=== PATIENT | female | born 1965 | race Two or more races ===

== ENCOUNTER 2017-03-12 15:08 | Emergency (ER) | payer OTHER, MEDICAID ==
[2017-03-12 15:20] VITALS: BMI 40.8
[2017-03-12] MEDS ORDERED: ZESTRIL TAB 40 MG ONE (15:54)
[2017-03-12] MEDS ORDERED: ZESTRIL TAB 40 MG PO SCH (15:58)
--- NOTE | 2017-03-12 16:32 | DR.HTN ---
HPI - Time Seen Time seen: 16:30 - Primary Care Physician Primary Care Physician: SAV MATUTE - HPI Comment HPI Comment: PATIENT COMPLIANT WITH MEDICATION. SHE IS ALSO HAVING ABDMINAL PAIN WITH NAUSEA. CHEST IS ALSO HURTING. NO FEVER. - Complaints Chief Complaint Doctors Comments: ELEVATED BP, CHEST PAIN AND DIZZINESS FOR SEVERAL DAYS. EVALUATED IN [place] FOR SAME. BP STILL ELEVATED. Chief Complaint:: PT C/O BP BEING HIGH AND THAT SHE HAS BEEN IN THE ER IN [place] 3 TIMES PT HAS A RX FOR CATAPRESS AND PT C/O THAT HE BP IS STILL HIGH.. Self Treatment fo Chief Complaint: PT C/O SOME PAIN IN HER CHEST, AND DIZZY WHEN SHE WALKS. - Reviewed Nurses Notes Reviewed: Yes - Source History Provided: Patient - Mode of Arrival Mode of Arrival: Ambulatory - Timing Onset of Chief Complaint: 02/25/17 - Severity What was the maximum recorded B/P?: 252/202 Severity: Moderate - Context Circumstances: Spontaneous Onset Treatment of HTN Prior to Arrival: Taking meds as prescribed - Associated Signs and Symptoms HTN Associated Signs and Symptoms: Headache, Dizziness PMH - PMH Past Medical History: Yes Past Medical History: Hypertension Past Surgical History: Yes Surgical History: Cholecystectomy Past Surgical History Comment: FREDY AREVALO , HERNIA - Family History History of Family Medical Conditions: No - Social History Does patient currently use any type of tobacco product: Yes Have you used tobacco products in the last 12 months: Yes Type of Tobacco Use: None How many years tobacco product used: 34 Does any household member use tobacco: No Alcohol Use: None Do you use any recreational Drugs:: No Lives With: Family Lives Where: Home - infectious screening In the last 2 months have you had wt loss of >10#?: NO Have you had fever, night sweats or hemotysis?: No Have you traveled outside the country in the last 6 months?: No Isolation: Standard ROS - Review of Systems Constitutional: Weakness, Fatigue. negative: Chills, Fever Eyes: No Symptoms Reported. negative: Eye Pain, Discharge ENTM: No Symptoms Reported. negative: Ear Pain, Nose Discharge, Nose Congestion , Throat Pain Respiratoy: No Symptoms Reported, Short of Breath. negative: Productive Cough, Non-Productive Cough, Wheezing, Hemoptysis Cardiovascular: No Symptoms Reported, Chest Pain. negative: Edema, Palpitations Gastrointestinal/Abdominal: No Symptoms Reported, Abdominal Pain, Nausea Genitourinary: No Symptoms Reported. negative: Dysuria, Frequency, Hematuria Neurological: Headache, Dizziness Musculoskeletal: No Symptoms Reported Integumentary: No Symptoms Reported Hematologic/Lymphatic: No Symptoms Reported Endocrine: No Symptoms Reported All Other Systems: Reviewed and Negative PE - Vital Signs Vitals: Temperature 98.0 F Pulse Rate 74 Respiratory Rate 18 Blood Pressure [Left Arm] 150/70 Blood Pressure 188/90 O2 Sat by Pulse Oximetry 98 - General Limitations: No Limitations General Appearance: Alert - Head Head Exam: Normal Inspection - Eyes Eye exam: Normal Appearance Pupils: Regular, Round: Bilateral - ENT ENT Exam: Normal External Ear Exam - Neck Neck Exam: Trachea Midline - Chest Chest Inspection: Symmetric Chest Wall Rise - Respiratory Respiratory Exam: Normal Lung Sounds Bilat Respiratory Exam: Bilateral Clear to Auscultation - Cardiovascular Cardiovascular Exam: Regular Rate, Normal Rhythm, Normal Heart Sounds - Abdominal Exam Abdominal Exam: Normal Bowel Sounds, Soft. negative: Tenderness - Extremities Extremities Exam: Normal Inspection - Back Back Exam: Normal Inspection - Neurologic Neurological Exam: Alert, Oriented X3 Speech: Fluid Speech Cranial Nerve Exam: EOM Function (II, III, IV, ): Normal, Facial Sensation (V) : Normal, Facial Palsy (VII): Normal, Gag reflex (XI): Normal, Spinal Accessory Function (XI): Normal, Tongue Deviation: Normal Motor Strength - LUE: 5/5 Motor Strength - RUE: 5/5 Motor Strength - LLE: 5/5 Motor Strength - RLE: 5/5 Upper Motor Neuron Exam: Babinski Sign: Normal DTR: bicep (L): 4+, bicep (R): 4+, brachioradialis (L): 4+, brachioradialis (R) : 4+, Patellar (L): 4+, patellar (R): 4+ - Psychiatric Psychiatric Exam: Normal Affect, Normal Mood - Skin Skin Exam: Normal Color MDM - Differential Diagnosis Differential Diagnosis: Hyertension, essential Differential Diagnosis Comment: ABDOMINAL PAIN, CHEST PAIN Course - Treatment Treatment: SEE ORDERS. - Education/Counseling Education/Counseling: Patient, Education Educated On: Treatment, Diagnosis, Needs for Follow Up ROR - Labs Reviewed Laboratory Results Reviewed?: Yes Result Diagrams: 03/12/17 16:40 03/12/17 16:40 Laboratory: WBC 13.7 X10^3/uL (3.6-10.0) H 03/12/17 16:40 RBC 4.28 X10^6/uL (3.5-5.4) 03/12/17 16:40 Hgb 12.4 g/dL (12.0-16.0) 03/12/17 16:40 Hct 37.4 % (36.0-47.0) 03/12/17 16:40 MCV 87.4 fL (80.0-100.0) 03/12/17 16:40 MCH 28.9 pg (27.0-34.0) 03/12/17 16:40 MCHC 33.0 g/dL (33.0-35.0) 03/12/17 16:40 RDW 14.7 % (11.6-16.5) 03/12/17 16:40 Plt Count 374 X10^3/uL (150.0-450.0) 03/12/17 16:40 MPV 7.5 fL (7.4-11.0) 03/12/17 16:40 Neut % 75.5 % (42.0-75.0) H 03/12/17 16:40 Lymph % 15.9 % (21.0-51.0) L 03/12/17 16:40 [place] % 6.3 % (0.0-13.0) 03/12/17 16:40 Eos % 1.2 % (0.9-2.9) 03/12/17 16:40 Baso % 1.1 % (0.2-1.0) H 03/12/17 16:40 Neut # 10.3 x10^3/uL (2.2-4.8) H 03/12/17 16:40 Lymph # 2.2 X10^3/uL (1.3-2.9) 03/12/17 16:40 [place] # 0.9 x10^3/uL (0.3-0.8) H 03/12/17 16:40 Eos # 0.2 x10^3/uL (0.0-0.2) 03/12/17 16:40 Baso # 0.1 X10^3/uL (0.0-0.1) 03/12/17 16:40 Absolute Nucleated RBC 0.0 /100WBC 03/12/17 16:40 Sodium 137 mmol/L (136-145) 03/12/17 16:40 Corrected Sodium TNP 03/12/17 16:40 Potassium 4.7 mmol/L (3.5-5.1) 03/12/17 16:40 Chloride 105 mmol/L (98-107) 03/12/17 16:40 Carbon Dioxide 22.7 mmol/L (21-32) 03/12/17 16:40 BUN 30 mg/dL (7-18) H 03/12/17 16:40 Creatinine 2.61 mg/dL (0.55-1.02) H 03/12/17 16:40 Est GFR (MDRD) Af Amer 25 (>60) L 03/12/17 16:40 Est GFR (MDRD) Non-Af 21 (>60) L 03/12/17 16:40 Glucose 96 mg/dL (65-99) 03/12/17 16:40 Calcium 9.0 mg/dL (8.5-10.1) 03/12/17 16:40 Corrected Calcium 10.2 mg/dL (8.5-10.1) H 03/12/17 16:40 Total Bilirubin 0.20 mg/dL (0.2-1.0) 03/12/17 16:40 AST 16 Units/L (15-37) 03/12/17 16:40 ALT 17 Units/L (12-78) 03/12/17 16:40 Alkaline Phosphatase 104 Units/L (46-116) 03/12/17 16:40 Creatine Kinase 43 Units/L (26-192) 03/12/17 16:40 CK-MB (CK-2) 1.0 ng/mL (0-4.0) 03/12/17 16:40 CK/CKMB % Calc 2.3 % (<4) 03/12/17 16:40 Troponin I < 0.02 ng/mL (0-1.5) 03/12/17 16:40 Total Protein 7.7 g/dL (6.4-8.2) 03/12/17 16:40 Albumin 2.5 g/dL (3.4-5.0) L 03/12/17 16:40 Globulin 5.2 g/dL (2.5-4.5) H 03/12/17 16:40 Albumin/Globulin Ratio 0.5 Ratio (1.1-2.1) L 03/12/17 16:40 Amylase 84 Units/L (25-115) 03/12/17 16:40 Lipase 149 Units/L (73-393) 03/12/17 16:40 Specimen Type Clean catch urine 03/12/17 16:58 Urine Color Yellow (YELLOW) 03/12/17 16:58 Urine Appearance Hazy (CLEAR) 03/12/17 16:58 Urine pH 5.0 (5.0 - 8.0) 03/12/17 16:58 Ur Specific [place] 1.015 (1.000-1.030) 03/12/17 16:58 Urine Protein 4+ (NEGATIVE) 03/12/17 16:58 Urine Glucose (UA) Negative (NEGATIVE) 03/12/17 16:58 Urine Ketones Negative (NEGATIVE) 03/12/17 16:58 Urine Occult Blood 4+ (NEGATIVE) 03/12/17 16:58 Urine Nitrite Negative (NEGATIVE) 03/12/17 16:58 Urine Bilirubin Negative (NEGATIVE) 03/12/17 16:58 Urine Urobilinogen Normal (NORMAL) 03/12/17 16:58 Ur Leukocyte Esterase Negative (NEGATIVE) 03/12/17 16:58 Urine RBC 0-5 /HPF (NEGATIVE) 03/12/17 16:58 Urine WBC 3-5 /HPF (NEGATIVE) 03/12/17 16:58 Ur Squamous Epith Cells Few /HPF (NEGATIVE) 03/12/17 16:58 Urine Bacteria Trace /HPF (NEGATIVE) 03/12/17 16:58 Ur Culture Indicated? No/not indicated 03/12/17 16:58 - Diagnosis Discharge Problem: Chest pain Abdominal pain Qualifiers: Abdominal location: generalized Qualified Code(s): R10.84 - Generalized abdominal pain Hypertension Qualifiers: Hypertension type: essential hypertension Qualified Code(s): I10 - Essential ( primary) hypertension - Discharge Plan Disposition: HOME, SELF-CARE Condition: Stable - Follow ups/Referrals Follow ups/Referrals: NOY ANG [Primary Care Provider] - 3 days - Instructions Instructions: Abdominal Pain, Adult, [id number], Hypertension, [id number], Chest Pain Observation Additional Instructions: RETURN TO ED IF WORSE. CONTINUE WITH LISINOPRIL YOU HAVE AT HOME. ALSO CLONIDINE YOU HAVE BID IF SBP OVER 150.
[2017-03-12] MEDS: CATAPRES TAB 0.2 MG PO ONE ×2 (16:35→16:40)
[2017-03-12 17:06] LABS: BILIRUBIN,URINE NEGATIVE (NEGATIVE); BLOOD/HEMOGLOBIN,URINE 4+ (NEGATIVE); GLUCOSE, URINE NEGATIVE (NEGATIVE); KETONES,URINE NEGATIVE (NEGATIVE); LEUKOCYTE ESTERASE ,URINE NEGATIVE (NEGATIVE); NITRITES,URINE NEGATIVE (NEGATIVE); PROTEIN,URINE 4+ (NEGATIVE); UROBILINOGEN,URINE NORMAL (NORMAL)
--- NOTE | 2017-03-12 17:07 | RAD ---
ACUTE ABDOMINAL SERIES CLINICAL HISTORY: 51-year-old female with chest pain and dizziness. COMPARISON: None. FINDINGS: PA chest radiograph demonstrates normal cardiopericardial silhouette. There is no focal consolidation , pleural effusion or pneumothorax. Pulmonary vascularity is normal. Abdominal radiographs demonstrate a nonobstructive bowel gas pattern. Gas and stool are seen througho ut the colon. There is no small bowel distention. There is no radiographic evidence of pneumoperitone um. Imaged osseous structures are intact. Soft tissues are unremarkable. IMPRESSION: 1. No acute cardiopulmonary process. 2. Nonobstructive bowel gas pattern without radiographic evidence of pneumoperitoneum. Reported By:
[2017-03-12 17:10] LABS: BASOPHILS # (AUTO) 0.1 X10^3/uL (0.0-0.1); BASOPHILS % (AUTO) 1.1 % (0.2-1.0); EOSINOPHILS # (AUTO) 0.2 x10^3/uL (0.0-0.2); EOSINOPHILS % (AUTO) 1.2 % (0.9-2.9); HEMATOCRIT 37.4 % (36.0-47.0); HEMOGLOBIN 12.4 g/dL (12.0-16.0); LYMPHOCYTES # (AUTO) 2.2 X10^3/uL (1.3-2.9); LYMPHOCYTES % (AUTO) 15.9 % (21.0-51.0); MEAN CORPUSCULAR HEMOGLOBIN 28.9 pg (27.0-34.0); MEAN CORPUSCULAR VOLUME 87.4 fL (80.0-100.0); MEAN PLATELET VOLUME 7.5 fL (7.4-11.0); MONOCYTES # (AUTO) 0.9 x10^3/uL (0.3-0.8); MONOCYTES % (AUTO) 6.3 % (0.0-13.0); NEUTROPHILS # (AUTO) 10.3 x10^3/uL (2.2-4.8); NEUTROPHILS % (AUTO) 75.5 % (42.0-75.0); PLATELET COUNT 374 X10^3/uL (150.0-450.0); RED BLOOD COUNT 4.28 X10^6/uL (3.5-5.4); RED CELL DISTRIBUTION WIDTH 14.7 % (11.6-16.5); WHITE BLOOD COUNT 13.7 X10^3/uL (3.6-10.0)
[2017-03-12 17:11] LABS: APPEARANCE,URINE HAZY (CLEAR); BACTERIA,URINE TRACE /HPF (NEGATIVE); COLOR,URINE YELLOW (YELLOW); RBC,URINE 0-5 /HPF (NEGATIVE); SQUAMOUS EPITHELIAL CELL,UR FEW /HPF (NEGATIVE)
[2017-03-12 17:28] LABS: BLOOD UREA NITROGEN 30 mg/dL (7-18); CARBON DIOXIDE 22.7 mmol/L (21-32); CHLORIDE 105 mmol/L (98-107); CREATININE 2.61 mg/dL (0.55-1.02); SODIUM 137 mmol/L (136-145); TROPONIN I < 0.02 ng/mL (0-1.5); eGFR BLACK RACES 25 (>60); eGFR NON BLACK RACES 21 (>60)
[2017-03-12 17:32] LABS: ALANINE AMINOTRANSFERASE 17 Units/L (12-78); ALBUMIN 2.5 g/dL (3.4-5.0); ALKALINE PHOSPHATASE 104 Units/L (46-116); AMYLASE 84 Units/L (25-115); ASPARTATE AMINO TRANSFERASE 16 Units/L (15-37); CKMB % 2.3 % (<4); COR CA(FOR HYPOALB) 10.2 mg/dL (8.5-10.1); CREATINE KINASE 43 Units/L (26-192); LIPASE 149 Units/L (73-393); TOTAL PROTEIN 7.7 g/dL (6.4-8.2)
[2017-03-12 17:38] VITALS: BP 150/70
== END 2017-03-12 18:35 | disposition home or self-care (01) ==
LOC: ER 15:32
DX: R07.89 Other chest pain (principal); R10.84 Generalized abdominal pain; I10 Essential (primary) hypertension
CPT/HCPCS: 36415; 74022; 80053; 81001; 82150; 82550; 82553; 83690; 84484; 85025; 93005; 93010; 99283